=== PATIENT | female | born 1935 | race Caucasian/White ===

== ENCOUNTER → 2016-11-20 | Outpatient (CLI) | payer MEDICARE ==
[2016-11-20 16:08] LABS: ALT 52 U/L (9-52); AST 48 U/L (14-36); Alkaline Phosphatase 147 U/L (38-126); Anion Gap 16 mmol/L; Blood Urea Nitrogen 21 mg/dL (7-17); Calcium 9.7 mg/dL (8.4-10.2); Carbon Dioxide 26 mmol/L (22-30); Chloride 101 mmol/L (98-107); Creatine Kinase 51 U/L (30-135); Glucose 99 mg/dL (74-99); Non-African American GFR(MDRD) >60 (>60 ml/min/1.73 sqM); Potassium 3.8 mmol/L (3.5-5.1); Sodium 143 mmol/L (137-145); Total Bilirubin 0.8 mg/dL (0.2-1.3); Total Protein 8.8 g/dL (6.3-8.2)
--- NOTE | 2016-11-20 16:10 | CT ---
EXAMINATION TYPE: CT chest wo con DATE OF EXAM: 11/20/2016 3:51 PM COMPARISON: NONE HISTORY: Pt states of SOB x2 months. CT DLP: 286.6 mGycm Automated exposure control for dose reduction was used. FINDINGS: There are diffuse emphysematous changes. 2 mm nodule anterior segment right upper lobe axial image 23 . Additional tiny subpleural nodule seen in the right upper lobe anteriorly. No consolidation. No pleural effusion or pneumothorax. Calcified lymph nodes in the mediastinum are s een. Calcification the tracheobronchial tree noted. Liver is prominent in size measuring 24 cm in there is a splenic granuloma. Hypertrophic and degenerative change of the spine noted. Mild cardiomegaly and coronary artery calcification seen. There is a tiny hepatic granuloma. There is calcifications within the right breast. Previous surgery involving the axilla on the right noted. Calcification in the right lobe of the thyroid also incidentally noted. IMPRESSION: DIFFUSE EMPHYSEMATOUS CHANGES WITH NO ACUTE INTRATHORACIC PROCESS. THERE IS SUBPLEURAL NODULARITY AND A SINGLE 2 MM ANTERIOR SEGMENT RIGHT UPPER LOBE PULMONARY NODULE A XIAL IMAGE 23. RECOMMEND 6 MONTH FOLLOW-UP EXAM TO CONFIRM STABILITY. THERE IS A 4 MM RIGHT BREAST NODULE RECOMMEND FOLLOW-UP MAMMOGRAM. HEPATOMEGALY.
== END | disposition home or self-care (01) ==
LOC: RADCTMAIN 15:21
PROVIDERS: ATTEND Nurse Practitioner Adult Health
DX: J43.9 Emphysema, unspecified (principal); R91.1 Solitary pulmonary nodule; R07.9 Chest pain, unspecified
CPT/HCPCS: 71250; 80053; 82550; 84484; 85379

== ENCOUNTER → 2017-06-03 | Outpatient (CLI) | payer MEDICARE ==
--- NOTE | 2017-06-03 14:00 | CT ---
EXAMINATION TYPE: CT chest wo con DATE OF EXAM: 06/03/2017 COMPARISON: 11/20/2016 HISTORY: Solitary nodule of lung CT DLP: 514 mGycm, Automated exposure control for dose reduction was used. CONTRAST: None TECHNIQUE: Axial images were obtained at 5 mm thick sections. Reconstructed images are reviewed on [employer] computer in the coronal plane. FINDINGS: Portion of the thyroid visualized is normal. No suspicious lung nodules or focal infiltrates are present. Emphysematous changes are present within the lung frank. No enlarged mediastinal or hilar adenopathy is evident. Calcified pretracheal lymph node is present . The ascending aorta diameter at the level of the main pulmonary artery is 3.4 cm. The main pulmona ry artery diameter at the bifurcation is 2.7 cm. Coronary artery calcification is present. Limited CT sections are obtained through the upper abdomen. Some thickening of the ascending colon wi thin the [id number] is not excluded. Cyst on the posterior lateral superior right kidney. Vascular calcifications within the aorta. IMPRESSIONS: 1. No acute intrathoracic process. 2. Previous right upper lobe nodule is not reidentified on the current examination.
== END | disposition home or self-care (01) ==
LOC: RADCTMAIN 12:50
PROVIDERS: ATTEND Family Medicine
DX: R91.1 Solitary pulmonary nodule (principal)
CPT/HCPCS: 71250

== ENCOUNTER 2020-07-01 11:29 | Emergency (ER) | payer MEDICARE ==
--- NOTE | 2020-07-01 11:59 | ED ---
Fall HPI - General Chief Complaint: Fall Stated Complaint: Fall - RT Leg Pain Time Seen by Provider: 07/01/20 11:42 Source: patient Mode of arrival: ambulatory - History of Present Illness Initial Comments: 84yo female presenting today for chief complaint of fall she states she is walking in a parking lot when she tripped falling she states that she has left- sided pain including left rib left side of the abdomen. She states she is unsure if she had her head or not. Denies any neck or low back pain. Patient states that she has some pain in the left knee however that occurred on Saturday she felt a pop in the left lateral knee. She states she has been able to weight-bear and ambulate since. Patient denies headaches, visual changes, nausea, vomiting. Denies weakness of the UE or LE, denies sensation deficits. Patient denies anticoagulation use. Patient states that she did no lose consciousness. Patient does appear slightly short of breath on arrival after moving from EMS stretcher to our bed she states this is normal denies increased SOB. Patient denies upper extremity injuries or pain. Patient was brought to our hospital by EMS. - Related Data Home Medications Medication Instructions Recorded Confirmed Citalopram Hydrobromide 20 mg PO DAILY 06/14/16 06/15/16 [Citalopram HBr] Levothyroxine Sodium [Synthroid] 88 mcg PO DAILY 06/14/16 06/15/16 Ranitidine HCl 150 mg PO DAILY 06/14/16 06/15/16 atenoloL [Tenormin] 25 mg PO DAILY 06/14/16 06/15/16 Allergies Allergy/AdvReac Type Severity Reaction Status Date / Time ampicillin Allergy hand Verified 07/01/20 11:51 swelling Sulfa (Sulfonamide Allergy Rash/Hives Verified 07/01/20 11:51 Antibiotics) Review of Systems ROS Statement: Those systems with pertinent positive or pertinent negative responses have been documented in the HPI. ROS Other: All systems not noted in ROS Statement are negative. Past Medical History Past Medical History: Cancer, GERD/Reflux, Hypertension, Osteoarthritis (OA), Pneumonia, Thyroid Disorder Additional Past Medical History / Comment(s): hx migraines, seizure 60 yrs ago, constipation, hx breast cancer History of Any Multi-Drug Resistant Organisms: None Reported Past Surgical History: Breast Surgery, Hernia Repair, Hysterectomy Additional Past Surgical History / Comment(s): rt breast lumpectomy, Past Anesthesia/Blood Transfusion Reactions: No Reported Reaction Past Psychological History: No Psychological Hx Reported Smoking Status: Former smoker Past Alcohol Use History: None Reported Past Drug Use History: None Reported - Past Family History Mother Family Medical History: No Reported History General Exam - General Exam Comments Initial Comments: General: The patient is awake and alert, in no distress, and does not appear acutely ill. Eye: +3 mm pupils are equal, round and reactive to light, extra-ocular movements are intact. No nystagmus. There is normal conjunctiva bilaterally. No signs of icterus. Ears, nose, mouth and throat: There are moist mucous membranes and no oral lesions. No raccoon or Sinclair sign Neck: The neck is supple, there is no tenderness or JVD. Full range of motion at cervical spine without pain. Cardiovascular: There is a regular rate and rhythm. No murmur, rub or gallop is appreciated. Respiratory: Lungs are clear to auscultation, respirations are non-labored, breath sounds are equal. No wheezes, stridor, rales, or rhonchi. Gastrointestinal: Soft, non-distended, mild tenderness to palpation of the left side of abdomen, abdomen without masses or organomegaly noted. There is no rebound or guarding present. Musculoskeletal: No midline tenderness to palpation of the cervical thoracic or lumbar spine Normal ROM, of the UE and LE joints b/l, some tenderness only at the left lateral knee. Strength 5/5. Sensation intact. Radial and DP pulses equal bilaterally 2+. Neurological: A&O x 3. CN II-XII intact, There are no obvious motor or sensory deficits. Coordination appears grossly intact. Speech is normal. Skin: Skin is warm and dry and no rashes or lesions are noted. Psychiatric: Cooperative, appropriate mood & affect, normal judgment. Limitations: no limitations Course Vital Signs 07/01/20 07/01/20 07/01/20 11:38 13:40 14:14 Temperature 99.3 F 98.4 F Pulse Rate 88 72 Respiratory 22 18 Rate Blood Pressure 200/96 167/80 O2 Sat by Pulse 96 98 Oximetry Medical Decision Making - Medical Decision Making Imaging (-) for acute process. Age indeterminate transvere process fracture however no pain midline, no complaints of new back pain. Patient CXR clear. VS stable. She ambulate without difficulty. No critical labs findings. At this time feel patient is stable for discharge with outpatient follow-up patient is agreeable to this care plan discharge at this time. - Lab Data Result diagrams: 07/01/20 12:03 07/01/20 12:03 Lab Results 07/01/20 07/01/20 07/01/20 Range/Units 12:03 12:03 12:03 WBC 5.0 (3.8-10.6) k/uL RBC 4.53 (3.80-5.40) m/uL Hgb 14.5 (11.4-16.0) gm/dL Hct 43.6 (34.0-46.0) % MCV 96.3 (80.0-100.0) fL MCH 32.0 (25.0-35.0) pg MCHC 33.2 (31.0-37.0) g/dL RDW 13.8 (11.5-15.5) % Plt Count 136 L (150-450) k/uL Neutrophils % 71 % Lymphocytes % 19 % Monocytes % 5 % Eosinophils % 3 % Basophils % 0 % Neutrophils # 3.6 (1.3-7.7) k/uL Lymphocytes # 1.0 (1.0-4.8) k/uL Monocytes # 0.3 (0-1.0) k/uL Eosinophils # 0.2 (0-0.7) k/uL Basophils # 0.0 (0-0.2) k/uL Sodium 138 (137-145) mmol/L Potassium 4.2 (3.5-5.1) mmol/L Chloride 108 H (98-107) mmol/L Carbon Dioxide 25 (22-30) mmol/L Anion Gap 5 mmol/L BUN 12 (7-17) mg/dL Creatinine 0.75 (0.52-1.04) mg/dL Est GFR (CKD-EPI)AfAm 84 (>60 ml/min/1.73 sqM) Est GFR (CKD-EPI)NonAf 73 (>60 ml/min/1.73 sqM) Glucose 130 H (74-99) mg/dL Calcium 9.0 (8.4-10.2) mg/dL Total Bilirubin 1.1 (0.2-1.3) mg/dL AST 42 H (14-36) U/L ALT 27 (4-34) U/L Alkaline Phosphatase 95 (38-126) U/L Troponin I <0.012 (0.000-0.034) ng/mL Total Protein 6.4 (6.3-8.2) g/dL Albumin 3.7 (3.5-5.0) g/dL Disposition Clinical Impression: Fall, Left sided abdominal pain, Rib pain on left side, Left knee pain Disposition: HOME SELF-CARE Condition: Good Instructions (If sedation given, give patient instructions): Fall Prevention for Older Adults (ED) Additional Instructions: Please use medication as discussed. Please follow-up with family doctor in the next 2 days.. Please return to emergency room if the symptoms increase or w orsen or for any other concerns. Is patient prescribed a controlled substance at d/c from ED?: No Referrals: Niko Brandt MD [Primary Care Provider] - 1-2 days Time of Disposition: 14:05
[2020-07-01 12:27] LABS: Basophils % (A) 0 %; Eosinophils # (A) 0.2 k/uL (0-0.7); Eosinophils % (A) 3 %; HCT 43.6 % (34.0-46.0); HGB 14.5 gm/dL (11.4-16.0); Lymphocytes % (A) 19 %; MCHC 33.2 g/dL (31.0-37.0); MCV 96.3 fL (80.0-100.0); Mean Platelet Volume 8.3; Monocytes # (A) 0.3 k/uL (0-1.0); Monocytes % (A) 5 %; Neutrophils # (A) 3.6 k/uL (1.3-7.7); Neutrophils % (A) 71 %; Platelet Count 136 k/uL (150-450); RBC 4.53 m/uL (3.80-5.40); RDW 13.8 % (11.5-15.5)
[2020-07-01 12:34] LABS: Albumin 3.7 g/dL (3.5-5.0); Potassium 4.2 mmol/L (3.5-5.1); Total Bilirubin 1.1 mg/dL (0.2-1.3); Total Protein 6.4 g/dL (6.3-8.2)
--- NOTE | 2020-07-01 12:36 | XR ---
EXAMINATION TYPE: XR pelvis AP view DATE OF EXAM: 07/01/2020 COMPARISON: None HISTORY: pain fall TECHNIQUE: AP pelvis FINDINGS: Femoral heads articulate with the acetabulum. Symphysis pubis and sacroiliac joints are nor mal. No acute fractures are evident. IMPRESSION: 1. No acute osseous abnormality AP pelvis
--- NOTE | 2020-07-01 12:37 | XR ---
EXAMINATION TYPE: XR knee complete LT DATE OF EXAM: 07/01/2020 COMPARISON: None HISTORY: Lateral knee pain following fall TECHNIQUE: Three-view left knee FINDINGS: Tibial and femoral components are present. No acute fractures are evident. No joint effusio n is evident. IMPRESSION: 1. Normal three-view left knee left knee prosthesis in position.
--- NOTE | 2020-07-01 12:38 | XR ---
EXAMINATION TYPE: XR chest 2V DATE OF EXAM: 07/01/2020 COMPARISON: None INDICATION: Fall left side pain TECHNIQUE: Frontal and lateral views of the chest are obtained. FINDINGS: The heart size is normal. The pulmonary vasculature is normal. The lungs are clear. There is elevation of the right diaphragm. No pneumothorax is evident. No displ aced rib fractures are identified. IMPRESSION: 1. No acute pulmonary process.
[2020-07-01 13:41] VITALS: BP 167/80; PULSE 72; RESP 18
--- NOTE | 2020-07-01 13:46 | CT ---
EXAMINATION TYPE: CT brain wo con DATE OF EXAM: 07/01/2020 COMPARISON: HISTORY: fall, trauma, pain CT DLP: 1099.4 mGycm Automated exposure control for dose reduction was used. Helical imaging through the brain. FINDINGS: Cerebral vascular calcifications are present. Cortical atrophy is likely age-related. Calvarium is in tact. Paranasal sinuses and mastoid air cells as visualized are normal. There are cerebral vascular c alcifications. Hyperostosis frontalis interna changes are present. There is no hemorrhage or hydrocep halus. Low-attenuation present within the head of the caudate on the right, periventricular white mat ter shows patchy low attenuation. IMPRESSION: AGE-RELATED CHANGES OF ATROPHY AND PROBABLE CHRONIC SMALL VESSEL ISCHEMIA.
--- NOTE | 2020-07-01 13:55 | CT ---
EXAMINATION TYPE: CT abdomen pelvis w con DATE OF EXAM: 07/01/2020 COMPARISON: CT 05/09/2015 HISTORY: left side flank pain post fall CT DLP: 1130.3 mGycm Automated exposure control for dose reduction was used. TECHNIQUE: Helical acquisition of images from the lung bases through the pelvis have been completed. CONTRAST: Performed without Oral Contrast and with IV Contrast, patient injected with 100 mL of Isovue 300. FINDINGS: There is elevation of the right hemidiaphragm. There are coronary artery calcifications pre sent. LUNG BASES: No significant abnormality is appreciated. AORTA: No significant abnormality is appreciated. LIVER/GB: No significant interval change is appreciated. PANCREAS: No significant abnormality is seen. SPLEEN: No significant abnormality is seen, punctate calcification may be indicative of old granuloma tous disease. ADRENALS: No significant abnormality is seen. 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 REPRODUCTIVE ORGANS: Uterus is not seen, ovaries may be present and atrophic BOWEL: Diverticular change is present in the sigmoid colon, there are serpiginous vascular structure s again noted in the perirectal fat. FREE AIR: No Free Air visible. ASCITES: None visible. PELVIC ADENOPATHY: None visualized. RETROPERITONEAL ADENOPATHY: No Retroperitoneal Adenopathy visible. URINARY BLADDER: No significant abnormality is seen. OSSEOUS STRUCTURES: Degenerative disc changes noted lumbosacral junction. There is some associated f acet arthropathy in the lower lumbar spine. Left L3 transverse process shows a minimally displaced fr acture as does the fourth not seen on prior exam. Osteoarthritic changes are noted in the hips. IMPRESSION: LUMBAR TRANSVERSE PROCESS FRACTURES ARE OF INDETERMINATE AGE.
[2020-07-01 14:15] VITALS: TEMP 98.4
== END 2020-07-01 14:14 | disposition home or self-care (01) ==
LOC: EC 11:29
DX: M25.562 Pain in left knee (principal); R07.81 Pleurodynia; R06.02 Shortness of breath; E07.9 Disorder of thyroid, unspecified; I10 Essential (primary) hypertension; K21.9 Gastro-esophageal reflux disease without esophagitis; Z87.891 Personal history of nicotine dependence; Z79.890 Hormone replacement therapy; Z79.899 Other long term (current) drug therapy; Z88.1 Allergy status to other antibiotic agents; Z88.2 Allergy status to sulfonamides; Z85.3 Personal history of malignant neoplasm of breast; W01.0XXA Fall on same level from slipping, tripping and stumbling without subsequent striking against object, initial encounter; Y92.481 Parking lot as the place of occurrence of the external cause; Y93.01 Activity, walking, marching and hiking
CPT/HCPCS: 36415; 93005; 80053; 84484; 85025; 72170; 73562; 71046; 70450; 74177; 99284; Q9967

== ENCOUNTER → 2022-10-26 | Outpatient (CLI) | payer MEDICARE ==
--- NOTE | 2022-10-26 09:50 | US ---
EXAMINATION TYPE: US liver DATE OF EXAM: 10/26/2022 COMPARISON: CT abdomen and pelvis 07/01/2020, renal ultrasound 07/25/2016. CLINICAL HISTORY: K74.60 CIRRHOSIS OF LIVER. cirrhosis, no symptoms TECHNIQUE: Multiple sonographic images of the right upper quadrant are obtained. FINDINGS: EXAM MEASUREMENTS: Liver Length: 13.4 cm Gallbladder Wall: 0.2 cm CBD: 0.5 cm Right Kidney: 8.4 x 4.3 x 4.5 cm Pancreas: wnl Liver: limited views, small in size Gallbladder: wnl Evidence for sonographic Naranjo's sign: no CBD: wnl Right Kidney: small in size Visualized portion of the pancreas is unremarkable. The tail is obscured by overlying bowel gas. Atro phic appearance of the liver with coarsened echotexture and nodular surface contour consistent with k nown cirrhosis. No definitive focal lesion identified. Gallbladder is within normal limits without ev idence of cholelithiasis, pericholecystic fluid, or wall thickening. The common bile ducts within nor mal limits. Partial visualization of the right kidney without evidence for hydronephrosis, nephrolith iasis, hydronephrosis or mass. No visualized free fluid. IMPRESSION: Findings consistent with reported hepatic cirrhosis. No definitive focal lesion.
[2022-10-26 15:48] LABS: Chol/HDL Ratio 3.38 Ratio; LDL Cholesterol,Calculated 78.2 mg/dL (0.0-131.0)
[2022-10-26 16:02] LABS: Basophils # (A) 0.01 X 10*3/uL (0.00-0.10); Basophils % (A) 0.4 %; Elliptocytes 2+; Eosinophils # (A) 0.08 X 10*3/uL (0.04-0.35); Eosinophils % (A) 3.6 %; HCT 35.9 % (37.2-46.3); HGB 11.7 g/dL (12.0-15.0); Immature Grans, Automated 0.4 %; Immature Platelet Fraction 9.2 % (1.1-6.1); Lymphocytes # (A) 0.62 X 10*3/uL (0.90-5.00); Lymphocytes % (A) 27.7 %; MCHC 32.6 g/dL (32.0-37.0); MCV 104.4 fL (80.0-97.0); Monocytes # (A) 0.21 X 10*3/uL (0.20-1.00); Monocytes % (A) 9.4 %; NRBC Per 100 WBC 0 /100 WBCS (0.0-0.0); Neutrophils # (A) 1.31 X 10*3/uL (1.80-7.70); Neutrophils % (A) 58.5 %; Platelet Count 64 X 10*3/uL (140-440); RBC 3.44 X 10*6/uL (4.10-5.20); RDW 15.3 % (11.5-14.5); WBC 2.24 X 10*3/uL (4.50-10.00)
[2022-10-26 16:09] LABS: ALT 37 U/L (8-44); AST 73 U/L (13-35); Albumin 3.2 g/dL (3.8-4.9); Albumin/Globulin Ratio 1.14 (1.60-3.17); Alkaline Phosphatase 115 U/L (41-126); BUN/Creat Ratio 13.29 Ratio (12.00-20.00); Blood Urea Nitrogen 9.3 mg/dL (9.0-27.0); Calcium 8.6 mg/dL (8.7-10.3); Carbon Dioxide 24.7 mmol/L (20.0-27.5); Chloride 107 mmol/L (96-109); Globulin 2.8 g/dL (1.6-3.3); Glucose 86 mg/dL (70-110); Non-African American GFR(CKD) 76.8 (60.0-200.0); Potassium 4.4 mmol/L (3.5-5.5); Sodium 141 mmol/L (135-145)
[2022-10-26 16:24] LABS: INR 1.19 (0.90-1.11); Prothrombin Time 13.4 sec (9.9-11.9)
== END | disposition home or self-care (01) ==
LOC: RADUSWWP 08:44
PROVIDERS: ATTEND Internal Medicine Gastroenterology
DX: Z00.01 Encounter for general adult medical examination with abnormal findings (principal); Z13.1 Encounter for screening for diabetes mellitus; K74.60 Unspecified cirrhosis of liver; I07.1 Rheumatic tricuspid insufficiency; E03.9 Hypothyroidism, unspecified; R31.9 Hematuria, unspecified
CPT/HCPCS: 76705; 80053; 80061; 82105; 83036; 83880; 84439; 84443; 85025; 85610

== ENCOUNTER → 2023-02-07 | Outpatient (CLI) | payer MEDICARE, OTHER ==
[2023-02-07 23:04] LABS: Appearance,BF Hazy; Color,BF Yellow; Nucleated Cells, Body Fluid 0 /uL; RBC, Body Fluid 5500 /uL
== END | disposition home or self-care (01) ==
LOC: LABWHC1 11:56
PROVIDERS: ATTEND Orthopaedic Surgery
DX: M25.562 Pain in left knee (principal); T84.84XA Pain due to internal orthopedic prosthetic devices, implants and grafts, initial encounter; R60.9 Edema, unspecified; Z96.652 Presence of left artificial knee joint
CPT/HCPCS: 36415; 85379; 85652; 86140; 87070; 87075; 87205; 89050

== ENCOUNTER → 2023-06-03 | Outpatient (CLI) | payer MEDICARE, OTHER ==
[2023-06-03 20:39] LABS: ALT 29 U/L (8-44); AST 53 U/L (13-35); Albumin 2.9 d/dL (3.8-4.9); Alkaline Phosphatase 144 U/L (41-126); BUN/Creat Ratio 16.29 Ratio (12.00-20.00); Bilirubin, Conjugated 0.69 mg/dL (0.20-0.40); Bilirubin,Unconjugated 0.81 mg/dL (0.20-1.00); Blood Urea Nitrogen 11.4 mg/dL (9.0-27.0); Calcium 8.6 mg/dL (8.7-10.3); Carbon Dioxide 23.4 mmol/L (21.6-31.8); Chloride 110 mmol/L (96-109); Globulin 2.9 d/dL (1.6-3.3); Glucose 94 mg/dL (70-110); Potassium 3.9 mmol/L (3.5-5.5); Sodium 142 mmol/L (135-145); Total Bilirubin 1.5 mg/dL (0.3-1.2); Total Protein 5.8 d/dL (6.2-8.2)
[2023-06-03 21:22] LABS: Basophils # (A) 0.01 X 10*3/uL (0.00-0.10); Basophils % (A) 0.4 %; Eosinophils # (A) 0.08 X 10*3/uL (0.04-0.35); Eosinophils % (A) 3.1 %; HCT 33.3 % (37.2-46.3); HGB 10.4 d/dL (12.0-15.0); Immature Grans, Automated 0 %; Immature Platelet Fraction 8.9 % (1.1-6.1); Lymphocytes # (A) 0.78 X 10*3/uL (0.90-5.00); Lymphocytes % (A) 30.7 %; MCH 31.6 pg (27.0-32.0); MCHC 31.2 d/dL (32.0-37.0); MCV 101.2 FL (80.0-97.0); Mean Platelet Volume 12.6 FL (9.5-12.2); Monocytes # (A) 0.23 X 10*3/uL (0.20-1.00); Monocytes % (A) 9.1 %; NRBC Per 100 WBC 0 X 10*3/uL (0.00-0.01); Neutrophils # (A) 1.44 X 10*3/uL (1.80-7.70); Neutrophils % (A) 56.7 %; Platelet Count 67 X 10*3/uL (140-440); RBC 3.29 X 10*6/uL (4.10-5.20); RDW 18.1 % (11.5-14.5); WBC 2.54 X 10*3/uL (4.50-10.00)
== END | disposition home or self-care (01) ==
LOC: LABWHC1 13:31
PROVIDERS: ATTEND Internal Medicine Gastroenterology
DX: K74.60 Unspecified cirrhosis of liver (principal)
CPT/HCPCS: 36415; 80053; 82105; 82248; 85025

== ENCOUNTER → 2023-06-26 | Outpatient (CLI) | payer MEDICARE, OTHER ==
--- NOTE | 2023-06-26 09:20 | US ---
EXAMINATION TYPE: US liver DATE OF EXAM: 06/26/2023 COMPARISON: NONE CLINICAL INDICATION: Female, 87 years old with history of K74.60 UNSPECIFIED CIRRHOSIS OF LIVER; Cirr hosis TECHNIQUE: Multiple sonographic images of the right upper quadrant are obtained. FINDINGS: EXAM MEASUREMENTS: Liver Length: 11.8 cm Gallbladder Wall: 0.3 cm Right Kidney: 8.3 x 4.9 x 3.5 cm FINANCE TEACHER NOTES: *Technical limitations due to large amount of overlying bowel gas Pancreas: Tail obscured by overlying bowel gas. Duct = 0.3cm Liver: limited evaluation, small in size . Nodular contour to the liver is suggestive of cirrhosis. Gallbladder: probable small stones Evidence for sonographic Naranjo's sign: no CBD: Obscured by overlying bowel gas Right Kidney: small in size IMPRESSION: 1. Cholelithiasis without sonographic evidence of cholecystitis. 2. No evidence of biliary ductal dilation. 3. No evidence of right-sided hydronephrosis. 4. Cirrhotic appearance to the liver.
== END | disposition home or self-care (01) ==
LOC: RADUSWWP 07:34
PROVIDERS: ATTEND Internal Medicine Gastroenterology
DX: K80.20 Calculus of gallbladder without cholecystitis without obstruction (principal); K74.60 Unspecified cirrhosis of liver
CPT/HCPCS: 76705